=== PATIENT | male | born 1970 | race Caucasian/White ===

== ENCOUNTER 2024-10-07 06:27 | Day surgery (SDC) | payer OTHER, SELFPAY ==
[2024-10-06 10:44] LABS: % Basophils 0.9 % (0-2); % Eosinophils 1.2 % (0-6); % Immature Granulocytes 0.4 % (0-0.5); % Lymphocytes 23.5 % (20.5-51.1); % Monocytes 9.3 % (1.7-9.3); % Neutrophils 64.7 % (42.2-75.2); Absolute Basophils 0.1 10^3/uL (0-0.2); Absolute Eosinophils 0.1 10^3/uL (0-0.7); Absolute Lymphocytes 1.3 10^3/uL (1.2-3.4); Absolute Monocytes 0.5 10^3/uL (0.1-0.6); Absolute Neutrophils 3.6 10^3/uL (1.4-6.5); Hemoglobin 14.7 g/dL (13.0-18.0); Mean Corpuscular Hgb 31.4 pg (27.0-31.0); Mean Corpuscular Volume 89.7 fL (80.0-94.0); Mean Platelet Volume 8.7 fL (7.4-10.4); Nucleated Red Blood Cells % 0 % (-); Platelet Count 299 10^3/uL (130-400); Red Blood Cell Count 4.68 10^6/uL (4.70-6.10); Red Cell Dist. Width 13.2 % (11.5-14.5); White Blood Cell Count 5.6 10^3/uL (4.8-10.8)
[2024-10-06 11:14] LABS: Blood Urea Nitrogen 13 mg/dl (9-20); Calcium 9.4 mg/dl (8.4-10.2); Carbon Dioxide 28 mmol/L (22-30); Chloride 100 mmol/L (98-107); Glucose 114 mg/dl (70-99); Potassium 4.4 mmol/L (3.5-5.1); Sodium 139 mmol/L (135-145); eGFR > 60.00
[2024-10-06 13:43] VITALS: BMI 25.6
[2024-10-07] MEDS: CELEBREX 200 MG PO (12:30)
[2024-10-07] MEDS: TYLENOL 1000 MG PO (12:30)
[2024-10-07 12:35] VITALS: BP 125/74; BMI 25.6
[2024-10-07] MEDS: NORMOSOL-R/PLASMALYTE-A 1000 IV (12:45)
[2024-10-07 16:00] VITALS: BP 125/74
[2024-10-07 16:01] VITALS: BP 128/76
[2024-10-07 16:15] VITALS: BP 123/79
[2024-10-07 16:30] VITALS: BP 122/81
[2024-10-07 16:45] VITALS: BP 133/80
[2024-10-07] MEDS: ROXICODONE 10 MG PO (16:45)
== END 2024-10-07 17:11 | disposition home or self-care (01) ==
LOC: SDS 06:27
PROVIDERS: ATTENDING PHYSICIAN Orthopaedic Surgery Hand Surgery; FAMILY PHYSICIAN Family Medicine
DX: M18.12 Unilateral primary osteoarthritis of first carpometacarpal joint, left hand (principal)
CPT/HCPCS: 25447; 36415; 80048; 85025; 93005